=== PATIENT | female | born 1970 | race Caucasian/White ===

== ENCOUNTER → 2017-10-19 | Outpatient (CLI) | payer OTHER ==
[~2017-10-19] MED LIST: ABAC300; Acular3 ML BOTHEYES; Aspir 8181 MG PO; CIPR500 PO; CRUTCH3 USE; CYCL10 PO; Ciloxan5 ML BOTHEYES; GABA100 PO; GLUCOSAMINE CO1 EACH PO; Glucosamine Ch1 EAC4 PO; HYDACE5325 PO; HYDCHL25 PO; Hair, Skin & N1 EACH PO; Hydrochlorothia25 MG PO; IBUP600 PO; IBUP800 PO; Klor-Con 1010 MEQ PO; LISI5 PO; METR500 PO; Norco 5-325 Ta1 EACH PO; OXYACE5T PO; OXYC5 PO; POTASSIUM GLUCONATE PO; POTCHL10ER PO; PRED20 PO; PROM25 PO; Prinivil10 MG PO; RXOXYACE PO; RXPROM25 PO; WARF4 PO
[2017-10-19 14:19] LABS: Appearance, Urine Clear (Clear); Bilirubin, Urine Neg (Neg); Blood, Urine 1+ (Neg); Color, Urine Yellow (P-Yellow); Glucose Qualitative, Urine Neg (Neg); Ketones, Urine Neg (Neg); Leukocyte Esterase, Urine Neg (Neg); Nitrite, Urine Neg (Neg); Protein, Urine Neg (Neg); Urobilinogen, Urine NORM (Normal)
[2017-10-19 14:32] LABS: Bacteria Rare /hpf; Red Blood Cells, Urine Not Seen /hpf (0-2); Squamous Epithelial Cells Rare /hpf (Few); White Blood Cells, Urine Not Seen /hpf (0-5)
== END | disposition home or self-care (01) ==
LOC: LAB 13:53 → LAB SHORT 13:53
PROVIDERS: Orthopaedic Surgery
DX: M19.019 Primary osteoarthritis, unspecified shoulder (principal); I10 Essential (primary) hypertension
CPT/HCPCS: 81001

== ENCOUNTER 2017-10-25 13:25 | Inpatient (IN) | payer OTHER ==
[~2017-10-25] VITALS: Ht 182.9 cm; Wt 112.9 kg
[2017-10-31 04:39] LABS: BASOPHILS ABSOLUTE AUTO 0.01 K/mm3 (0.00-0.23); BASOPHILS PERCENT AUTO 0 % (0-2); EOSINOPHILS ABSOLUTE AUTO 0.03 K/mm3 (0.00-0.68); EOSINOPHILS PERCENT AUTO 0 % (0-6); Hematocrit 34.7 % (33.0-51.0); Hemoglobin 11.2 g/dL (11.5-16.0); IMMATURE GRAN ABSOLUTE AUTO 0.06 K/mm3 (0.00-0.10); IMMATURE GRAN PERCENT AUTO 0 % (0-1); LYMPHOCYTES ABSOLUTE AUTO 1.32 K/mm3 (0.84-5.20); LYMPHOCYTES PERCENT AUTO 9 % (21-46); MONOCYTES ABSOLUTE AUTO 1.13 K/mm3 (0.16-1.47); MONOCYTES PERCENT AUTO 8 % (4-13); Mean Corpuscular HGB 28.4 pg (26.0-34.0); Mean Corpuscular HGB Conc 32.3 g/dL (31.5-36.5); Mean Corpuscular Volume 88 fL (80-100); Mean Platelet Volume 9.4 fL (9.1-12.4); NEUTROPHILS PERCENT AUTO 82 % (41-73); Platelet Count 265 K/mm3 (150-400); RDW Standard Deviation 45.2 fL (35.1-46.3); Red Blood Cell Count 3.94 M/mm3 (3.80-5.20); White Blood Cell Count 14.45 K/mm3 (4.00-11.30)
[2017-10-31 04:56] LABS: Anion Gap 7 mmol/L (6-16); Blood Urea Nitrogen 21 mg/dL (8-24); Bun/Creatinine Ratio 23.7 (12.0-20.0); CO2, Blood 28 mmol/L (21-32); Calcium, Blood 7.8 mg/dL (8.5-10.1); Chloride, Blood 102 mmol/L (98-108); Creatinine, Blood 0.89 mg/dL (0.40-1.00); Glomerular Filtration Rate >60 (60-); Glucose, Blood 115 mg/dL (70-99); Potassium, Blood 4.3 mmol/L (3.5-5.5); Sodium, Blood 137 mmol/L (136-145)
[2017-10-31] MEDS ORDERED: OXYC5 PO (13:17)
[2017-10-31] MEDS ORDERED: ASPI325EC PO (13:19)
== END 2017-10-31 14:23 | disposition home or self-care (01) | DRG 483 ==
LOC: SURS 10-30 05:58 → PRE IP 10-30 07:30 → SURS 10-30 11:23
PROVIDERS: Orthopaedic Surgery
PROC: 0RRK0J6 Replacement of Left Shoulder Joint with Synthetic Substitute, Humeral Surface, Open Approach (ICD-10-PCS; principal; 2017-10-30 07:30)
DX: M19.012 Primary osteoarthritis, left shoulder (principal); I10 Essential (primary) hypertension
CPT/HCPCS: 36415; 73030; 80048; 85025; 86850; 86900; 86901; 97110; 97116; 97162; 97165; 97535; C1776; G8978; G8979; G8987; G8988; G8989; J0171; J0690; J0735; J1100; J1885; J2250; J2405; J2795; J3010; J7120

== ENCOUNTER 2018-05-07 09:58 | Inpatient (IN) | payer OTHER ==
[~2018-05-07] VITALS: Ht 182.9 cm; Wt 112.8 kg
[~2018-05-07 09:58] MED LIST changes: +ASPI325EC PO; +CHOL10002 PO
--- NOTE | 2018-05-07 10:40 | NUR ---
History, Chart, Medications and Allergies reviewed before start of procedure. Patient confirms NPO status and agrees with scheduled surgery. Lungs clear T/O to Auscultation. Pre-Op teaching done. Pt verbalizes understanding. Patient reports completing Chlorhexadine shower X2 prior to admission to hospital. NO MUPIROCIN PRESCRIBED FOR MSSA+
--- NOTE | 2018-05-07 11:04 | NUR ---
NOZIN SWABS COMPLETED AT IN PREOP.
--- NOTE | 2018-05-07 11:18 | NUR ---
LUIS Clemons RN WILL ASSIST DR NOLEN WITH BLOCK IN SDS SPOT #4.
--- NOTE | 2018-05-07 11:40 | NUR ---
MONITORS PLACED ON PATIENT FOR BLOCK, CONTINUOUS SaO2 AND B/P.
--- NOTE | 2018-05-07 11:54 | NUR ---
BAG PATCHER REPORT COMPLETED AT BEDSIDE WITH DANIELE AMAYA RN.
--- NOTE | 2018-05-07 14:10 | NUR ---
05/07/18 1410 Jinny Christensen ALL COUNTS CORRECT
--- NOTE | 2018-05-07 18:17 | NUR ---
PT ARRIVED AT APPROXIMATELY 1600 TO THE ROOM. PT ORIENTED BUT DROWSY. SPOUSE AT THE BEDSIDE. PT DENIED N/V AND PAIN. ABLE TO WIGGLE FINGERS, CAP REFIL WNL, RADIAL PULSE TO RUE WNL. WILL CONTINUE TO MONITOR.
--- NOTE | 2018-05-07 19:40 | NUR ---
SHIFT SUMMARY PAIN HAS BEEN MANAGED WITH PO PAIN MEDICATION POST OP. PT IS TOLERATING PO. ABLE TO MOVE HER FINGERS, RADIAL PULSE WNL, CAP REFILL WNL. REPORT GIVEN TO ONELIA OSBORNE.
--- NOTE | 2018-05-08 04:01 | NUR ---
47 year old Female with rt shoulder surgery up with minimal assist to ambulate to bathroom several times. on room air voida and pain controlled on tylenol 100 mg po scheduled, toradol q 6 hours and oxycodone 10 mg po q 4 hours prn. has taken oxycodone 10 mg several times and would like it again prior to this shifts end. minimal appetite, taking fluids well. 2 Daughters rooming in at bedside. PT refused ice to rt shoulder.
[2018-05-08 05:12] LABS: BASOPHILS ABSOLUTE AUTO 0.02 K/mm3 (0.00-0.23); BASOPHILS PERCENT AUTO 0 % (0-2); EOSINOPHILS ABSOLUTE AUTO 0.01 K/mm3 (0.00-0.68); EOSINOPHILS PERCENT AUTO 0 % (0-6); Hematocrit 36.9 % (33.0-51.0); Hemoglobin 11.5 g/dL (11.5-16.0); IMMATURE GRAN ABSOLUTE AUTO 0.06 K/mm3 (0.00-0.10); IMMATURE GRAN PERCENT AUTO 0 % (0-1); LYMPHOCYTES ABSOLUTE AUTO 1.12 K/mm3 (0.84-5.20); LYMPHOCYTES PERCENT AUTO 8 % (21-46); MONOCYTES ABSOLUTE AUTO 0.96 K/mm3 (0.16-1.47); MONOCYTES PERCENT AUTO 7 % (4-13); Mean Corpuscular HGB 25.3 pg (26.0-34.0); Mean Corpuscular HGB Conc 31.2 g/dL (31.5-36.5); Mean Corpuscular Volume 81 fL (80-100); Mean Platelet Volume 9.6 fL (9.1-12.4); NEUTROPHILS ABSOLUTE AUTO 11.89 K/mm3 (1.96-9.15); NEUTROPHILS PERCENT AUTO 85 % (41-73); Platelet Count 269 K/mm3 (150-400); RDW Standard Deviation 49.9 fL (35.1-46.3); Red Blood Cell Count 4.55 M/mm3 (3.80-5.20); White Blood Cell Count 14.06 K/mm3 (4.00-11.30)
[2018-05-08 05:51] LABS: Anion Gap 7 mmol/L (6-16); Blood Urea Nitrogen 22 mg/dL (8-24); Bun/Creatinine Ratio 23.1 (12.0-20.0); CO2, Blood 27 mmol/L (21-32); Calcium, Blood 8.2 mg/dL (8.5-10.1); Chloride, Blood 102 mmol/L (98-108); Creatinine, Blood 0.95 mg/dL (0.40-1.00); Glomerular Filtration Rate >60 (60-); Glucose, Blood 127 mg/dL (70-99); Magnesium, Blood 2.2 mg/dL (1.6-2.4); Potassium, Blood 4.4 mmol/L (3.5-5.5); Sodium, Blood 136 mmol/L (136-145)
--- NOTE | 2018-05-08 09:05 | NUR ---
PT DOES NOT HAVE A KENNEY IN PLACE. VOIDING WELL.
[2018-05-08] MEDS ORDERED: OXYC5 PO (16:02)
[2018-05-08] MEDS ORDERED: ASPI325 PO (16:03)
--- NOTE | 2018-05-08 16:15 | NUR ---
DISCHARGE PT HAS DONE WELL TODAY. PAIN WELL MANAGED, SCRIPT GIVEN, TOLERATING DIET, VOIDING WELL. PT FEELS COMFORTABLE WITH D/C. ESCORTED OUT VIA W/C.
== END 2018-05-08 16:16 | disposition home or self-care (01) | DRG 483 ==
LOC: SURS 09:58 → PRE IP 11:45 → SURS 15:57
PROVIDERS: ADMIT Orthopaedic Surgery
PROC: 0RRJ0J6 Replacement of Right Shoulder Joint with Synthetic Substitute, Humeral Surface, Open Approach (ICD-10-PCS; principal; 2018-05-07 11:45)
DX: M19.011 Primary osteoarthritis, right shoulder (principal); I10 Essential (primary) hypertension; E66.9 Obesity, unspecified; Z68.33 Body mass index [BMI] 33.0-33.9, adult
CPT/HCPCS: 36415; 73030; 80048; 83735; 85025; 88300; 97110; 97162; 97165; 97530; 97535; C1776; J0171; J0690; J0735; J1100; J1885; J2250; J2370; J2405; J2710; J2795; J3010; J7120

== ENCOUNTER 2019-10-20 20:09 | Inpatient (IN) | payer BC, OTHER ==
[~2019-10-20] VITALS: Ht 182.9 cm; Wt 123.8 kg
[~2019-10-20 20:09] MED LIST changes: +ASPI325 PO
[2019-10-20 20:46] LABS: BASOPHILS ABSOLUTE AUTO 0.06 K/mm3 (0.00-0.23); BASOPHILS PERCENT AUTO 0 % (0-2); EOSINOPHILS ABSOLUTE AUTO 0.07 K/mm3 (0.00-0.68); EOSINOPHILS PERCENT AUTO 1 % (0-6); Hematocrit 41.7 % (33.0-51.0); Hemoglobin 12.8 g/dL (11.5-16.0); IMMATURE GRAN ABSOLUTE AUTO 0.08 K/mm3 (0.00-0.10); IMMATURE GRAN PERCENT AUTO 1 % (0-1); LYMPHOCYTES ABSOLUTE AUTO 1.18 K/mm3 (0.84-5.20); LYMPHOCYTES PERCENT AUTO 8 % (21-46); MONOCYTES ABSOLUTE AUTO 1.34 K/mm3 (0.16-1.47); MONOCYTES PERCENT AUTO 9 % (4-13); Mean Corpuscular HGB 24.3 pg (26.0-34.0); Mean Corpuscular HGB Conc 30.7 g/dL (31.5-36.5); Mean Corpuscular Volume 79 fL (80-100); Mean Platelet Volume 9.4 fL (9.1-12.4); NEUTROPHILS ABSOLUTE AUTO 12.55 K/mm3 (1.96-9.15); NEUTROPHILS PERCENT AUTO 82 % (41-73); Platelet Count 294 K/mm3 (150-400); RDW Coefficient Variation 17.2 % (11.7-14.2); RDW Standard Deviation 48.6 fL (35.1-46.3); Red Blood Cell Count 5.27 M/mm3 (3.80-5.20); White Blood Cell Count 15.28 K/mm3 (4.00-11.30)
[2019-10-20 21:04] LABS: Anion Gap 5 mmol/L (6-16); Blood Urea Nitrogen 7 mg/dL (8-24); Bun/Creatinine Ratio 9.7 (12.0-20.0); CO2, Blood 25 mmol/L (21-32); Calcium, Blood 8.6 mg/dL (8.5-10.1); Chloride, Blood 104 mmol/L (98-108); Creatinine, Blood 0.72 mg/dL (0.40-1.00); Glomerular Filtration Rate >60 (60-); Glucose, Blood 109 mg/dL (70-99); Sodium, Blood 134 mmol/L (136-145)
[2019-10-20] MEDS ORDERED: FUROSEMIDE20 MG PO ×2 (21:30)
[2019-10-20 23:16] LABS: Body Fluid Crystals NEG (NEGATIVE)
[2019-10-21 01:48] LABS: Appearance, Synovial Fluid Cloudy (Clear); Color, Synovial Fluid Yellow (None-P Yel); WBC Count, Synovial Fluid 61120 /mm3 (0-180)
[2019-10-21 01:49] LABS: BODY FLUID RBC 0.006 M/mm3 (0-0); RBC Count, Synovial Fluid 6000 /mm3 (0-0)
[2019-10-21 01:55] LABS: Lymphs, Synovial Fluid 1 % (0-15); Monocytes/Macrophages, Synovia 10 % (0-65); Neutrophils, Synovial Fluid 89 % (0-24)
--- NOTE | 2019-10-21 04:59 | NUR ---
SHIFT SUMMARY RECIEVED REPORT FROM LYNN OSBORNE, ED @ 0242. ARRIVED TO MEDICAL FLOOR VIA STRETCHER @ 0302. STATED DIFFICULT TX FROM STRETCHER TO BED. WANTS TO ATTEMPT TO USE BSC BEFORE BEDPAN. A/O, ABLE TO MAKE NEEDS KNOWN. COOPERATIVE WITH CARE. ANSWERS QUESTIONS APPROPRIATELY. C/O PAIN/DISCOMFORT TO L KNEE RATED 6/10; MEDICATED PER EMAR. IV FLUIDS/ABX INFUSING WITHOUT COMPLICATIONS. ORTHO CONSULT TO BE PLACED. REMAINS NPO FOR POSSIBLE PROCEDURE. VSS. WCTM. BED REMAINS IN LOWEST POSITION. CALL LIGHT AND BELONGINGS WITHIN REACH. REPORT TO ONCOMING RN.
[2019-10-21 05:10] LABS: BASOPHILS ABSOLUTE AUTO 0.06 K/mm3 (0.00-0.23); BASOPHILS PERCENT AUTO 1 % (0-2); EOSINOPHILS ABSOLUTE AUTO 0.09 K/mm3 (0.00-0.68); EOSINOPHILS PERCENT AUTO 1 % (0-6); Hemoglobin 11.4 g/dL (11.5-16.0); IMMATURE GRAN ABSOLUTE AUTO 0.07 K/mm3 (0.00-0.10); IMMATURE GRAN PERCENT AUTO 1 % (0-1); LYMPHOCYTES ABSOLUTE AUTO 1.22 K/mm3 (0.84-5.20); LYMPHOCYTES PERCENT AUTO 11 % (21-46); MONOCYTES ABSOLUTE AUTO 1.33 K/mm3 (0.16-1.47); MONOCYTES PERCENT AUTO 12 % (4-13); Mean Corpuscular HGB 24.6 pg (26.0-34.0); Mean Corpuscular HGB Conc 30.8 g/dL (31.5-36.5); Mean Corpuscular Volume 80 fL (80-100); Mean Platelet Volume 9.5 fL (9.1-12.4); NEUTROPHILS ABSOLUTE AUTO 8.63 K/mm3 (1.96-9.15); NEUTROPHILS PERCENT AUTO 76 % (41-73); Platelet Count 216 K/mm3 (150-400); RDW Coefficient Variation 17.2 % (11.7-14.2); RDW Standard Deviation 49.5 fL (35.1-46.3); Red Blood Cell Count 4.63 M/mm3 (3.80-5.20)
[2019-10-21 05:48] LABS: Anion Gap 5 mmol/L (6-16); Blood Urea Nitrogen 8 mg/dL (8-24); Bun/Creatinine Ratio 9.4 (12.0-20.0); CO2, Blood 27 mmol/L (21-32); Calcium, Blood 7.9 mg/dL (8.5-10.1); Chloride, Blood 105 mmol/L (98-108); Creatinine, Blood 0.85 mg/dL (0.40-1.00); Glomerular Filtration Rate >60 (60-); Glucose, Blood 95 mg/dL (70-99); Potassium, Blood 3.4 mmol/L (3.5-5.5); Sodium, Blood 137 mmol/L (136-145)
--- NOTE | 2019-10-21 17:15 | NUR ---
SHIFT SUMMARY: PT HAS SLEPT MOST OF THE SHIFT. HAD SEVERE PAIN TO HER LEFT KNEE WHEN TRANSFERRING TO [facility] WITH ASSISTANCE FROM RN AND PROGRAM AND RESEARCH COORDINATOR. 0.5 MG IV DILAUDID GIVEN PRN PER EMAR, AND PT REPORTS THIS IS EFFECTIVE IN TREATING HER PAIN. NS RUNNING AT 100 ML/HR. DR. RENE IN TO SEE PT THIS MORNING; STATES PT WILL NEED TO BE NPO AT MIDNIGHT FOR POSSIBLE PROCEDURE TOMORROW. PT UPDATED ON THIS PLAN. TEMP 99.9 THIS AFTERNOON, IV ABX ORDERED. NO OTHER CHANGES TO REPORT. CURRENTLY SLEEPING WITH CALL LIGHT IN REACH. WILL CONTINUE TO MONITOR AND REPORT TO ONCOMING RN.
[2019-10-22 03:11] LABS: BASOPHILS ABSOLUTE AUTO 0.03 K/mm3 (0.00-0.23); BASOPHILS PERCENT AUTO 0 % (0-2); EOSINOPHILS ABSOLUTE AUTO 0.07 K/mm3 (0.00-0.68); EOSINOPHILS PERCENT AUTO 1 % (0-6); Hematocrit 36.1 % (33.0-51.0); IMMATURE GRAN ABSOLUTE AUTO 0.05 K/mm3 (0.00-0.10); IMMATURE GRAN PERCENT AUTO 0 % (0-1); LYMPHOCYTES ABSOLUTE AUTO 1.07 K/mm3 (0.84-5.20); LYMPHOCYTES PERCENT AUTO 9 % (21-46); MONOCYTES ABSOLUTE AUTO 1.54 K/mm3 (0.16-1.47); MONOCYTES PERCENT AUTO 13 % (4-13); Mean Corpuscular HGB 24.2 pg (26.0-34.0); Mean Corpuscular HGB Conc 30.5 g/dL (31.5-36.5); Mean Corpuscular Volume 79 fL (80-100); Mean Platelet Volume 9.1 fL (9.1-12.4); NEUTROPHILS ABSOLUTE AUTO 9.44 K/mm3 (1.96-9.15); NEUTROPHILS PERCENT AUTO 77 % (41-73); Platelet Count 234 K/mm3 (150-400); RDW Coefficient Variation 17.2 % (11.7-14.2); Red Blood Cell Count 4.55 M/mm3 (3.80-5.20)
[2019-10-22 03:27] LABS: Vancomycin, Trough 16.7 ug/mL (5.0-10.0)
--- NOTE | 2019-10-22 04:24 | NUR ---
SHIFT SUMMARY ASSUMED CARE OF PT AT 1900. PT IS A/OX4, DENIES N/T IN EXTREMITES. HEART SOUNDS REGULAR, LUNG SOUNDS CLEAR, DENIES SOB/CP. PT WAS CONTINENT OF BLADDER. PT USED BED LANG LAST NIGHT DUE TO DIFFICULTY GETTING UP. PT WAS VERY EMBARRASSED AND CRIED DURING AFTER BEING CLEANED. PT L KNEE IS SWOLLEN AND FIRM TO TOUCH. PT C/O PAIN, MEDICATED PER EMAR. PT HAS BEEN NPO SINCE MIDNIGHT. CALL LIGHT IN REACH, BED IN LOWEST POSTION, WILL CONTINUE TO MONITOR UNTIL DAYSHIFT NURSE ARRIVES.
--- NOTE | 2019-10-22 12:21 | NUR ---
PATIENT OFF UNIT TO OR AT 1145. FOLLOWED.
--- NOTE | 2019-10-22 13:09 | NUR ---
"DAY SURGERY RN | TO OR BOTH DOCTORS HAVE SEEN PATIENT. CLOTHING ROOM SUPERVISOR RN, LUIS OSBORNE, HAVE SEEN PATIENT. REPORT OFF TO LUIS OSBORNE. TO OR."
--- NOTE | 2019-10-22 14:19 | NUR ---
PATIENT BELONGINGS DELIVERED TO ROOM 231 BY Garcia CONTRERAS CNA. REPORT GIVEN TO Fermin YOON RN AT 1405.
--- NOTE | 2019-10-22 16:20 | NUR ---
PT ARRIVED TO ROOM 231 FROM PACU S/P L KNEE I&D PT HAS A HEMOVAC DRAINING SERO/SANG DRAINAGE PT DROWSY REPORTS PAIN 5/10 TO THE KNEE ANTONIO WRAP BULKY DRESSING C/D/I PT S/O AT BEDSIDE
--- NOTE | 2019-10-22 19:07 | NUR ---
CARE ASSUMED AT 1730 CARE OF PT WAS ASSUMED AT 1730. PT DROWSY BUT AWAKENS WHEN SPOKEN TO. REPORT GIVEN TO JUDAH OSBORNE.
[2019-10-23 04:39] LABS: BASOPHILS ABSOLUTE AUTO 0.03 K/mm3 (0.00-0.23); BASOPHILS PERCENT AUTO 0 % (0-2); EOSINOPHILS ABSOLUTE AUTO 0.01 K/mm3 (0.00-0.68); EOSINOPHILS PERCENT AUTO 0 % (0-6); Hematocrit 35.5 % (33.0-51.0); Hemoglobin 10.9 g/dL (11.5-16.0); IMMATURE GRAN ABSOLUTE AUTO 0.06 K/mm3 (0.00-0.10); IMMATURE GRAN PERCENT AUTO 0 % (0-1); LYMPHOCYTES ABSOLUTE AUTO 0.76 K/mm3 (0.84-5.20); LYMPHOCYTES PERCENT AUTO 5 % (21-46); MONOCYTES ABSOLUTE AUTO 1.46 K/mm3 (0.16-1.47); MONOCYTES PERCENT AUTO 10 % (4-13); Mean Corpuscular HGB 24.8 pg (26.0-34.0); Mean Corpuscular HGB Conc 30.7 g/dL (31.5-36.5); Mean Corpuscular Volume 81 fL (80-100); Mean Platelet Volume 9.5 fL (9.1-12.4); NEUTROPHILS ABSOLUTE AUTO 12.14 K/mm3 (1.96-9.15); NEUTROPHILS PERCENT AUTO 84 % (41-73); Platelet Count 259 K/mm3 (150-400); RDW Coefficient Variation 17.1 % (11.7-14.2); RDW Standard Deviation 49.6 fL (35.1-46.3); White Blood Cell Count 14.46 K/mm3 (4.00-11.30)
[2019-10-23 05:01] LABS: Alanine Aminotransfer (ALT/SGP 32 U/L (12-78); Albumin, Blood 2.2 g/dL (3.4-5.0); Albumin/Globulin Ratio 0.5 (0.8-1.8); Alk Phos 195 U/L (50-136); Anion Gap 3 mmol/L (6-16); Aspartate Aminotrans (AST/SGOT 27 U/L (12-37); Bilirubin, Total 0.5 mg/dL (0.1-1.0); Blood Urea Nitrogen 13 mg/dL (8-24); CO2, Blood 27 mmol/L (21-32); Calcium, Blood 8.4 mg/dL (8.5-10.1); Chloride, Blood 110 mmol/L (98-108); Creatinine, Blood 0.81 mg/dL (0.40-1.00); Globulin, Blood 4.4 g/dL (2.2-4.0); Glomerular Filtration Rate >60 (60-); Glucose, Blood 116 mg/dL (70-99); Potassium, Blood 4.2 mmol/L (3.5-5.5); Sodium, Blood 140 mmol/L (136-145); Total Protein, Blood 6.6 g/dL (6.4-8.2)
--- NOTE | 2019-10-23 05:12 | NUR ---
SHIFT SUMMARY: YVES AROUSES EASILY AND RESPONDS APPROPRIATELY. SHE IS POD1 TODAY FOR A LEFT KNEE. SHE HAS RESTED FOR THE MAJORITY OF THE SHIFT. VSS, NO ACUTE CHANGES OVERNIGHT. SHE IS TOLERATING PO INTAKE WELL. SIDE RAILS UP X 3, CALL LIGHT IN REACH. WILL REPORT TO DAY SHIFT RN.
--- NOTE | 2019-10-23 12:22 | NUR ---
10/23/19 1222 Judith Guerrero VERIIFICATIONS: EDIT CHART.
--- NOTE | 2019-10-23 16:48 | NUR ---
Shift summary Patient is a 1 person assist to the BSC. Pain controlled with scheduled Tylenol and Toradol. Oxycodone given for breakthrough pain. VSS. Dressing CDI. Hemovac putting out serosanguinous fluid. Call light within patient reach.
--- NOTE | 2019-10-24 01:28 | NUR ---
10/23/19 194 PT LAYING IN BED WITH HEMOVAC DRAINING SMALL AMOUNT DARK RED FLUID; PT C/O LEFT KNEE PAIN RATED 7/10 WITH SCHEDULED TORADOL AND TYLENOL 1000MG GIVEN WITH RELIEF FELT. 10/24/1999 PT RESTING COMFORTABLY IN BED.
--- NOTE | 2019-10-24 03:56 | NUR ---
SHIFT SUMMARY: 48 Y/O FEMALE HAD RESTLESS NIGHT AT TIMES WITH LEFT KNEE PAIN RATED 8/10 WITH ROXICODONE 10MG PO GIVEN TWICE WITH ADEQUATE PAIN RELIEF VOICED; PTS LLE ANTONIO WRAP DRESSING DRY AND INTACT WITH HEMOVAC DRAINING SMALL AMOUNT DARK RED FLUID; ALERT AND ORIENTED X 4; PT ABLE TO STAND AND PIVOT AND VOID VIA BSC; BED LOW POSITION WITH CALL LIGHT AT SIDE; WEARING SCDS ALL SHIFT WITH TEDS.
--- NOTE | 2019-10-24 17:44 | NUR ---
Shift summary Patient is a SBA in the room. Pain controlled with scheduled Tylenol and Oxycodone for breakthrough pain. VSS. Hemovac removed today. ANTONIO wrap CDI. PICC line placed to RUE. Plan for patient to go home tomorrow with home health for antibiotic therapy. Call light within patient reach.
--- NOTE | 2019-10-25 07:30 | NUR ---
ASSUMED CARE: PT RESTING QUIETLY IN BED AT THIS TIME. NO ACUTE NEEDS OR CONCERNS NOTED.
--- NOTE | 2019-10-25 07:40 | NUR ---
SUMMARY PT SLEPT QUIETLY. REPORTED PO PAIN MEDS EFFECTIVE.OOB FOR BRP TONIGHT WITH SBA.
--- NOTE | 2019-10-25 09:50 | NUR ---
CALL TO PHARMACY REGARDING ANTIBIOTIC SENSITIVITIES. AWAITING RETURN CALL
--- NOTE | 2019-10-25 11:34 | NUR ---
DR COMBS AWARE OF PHARMACY'S RECOMMENDATIONS FOR ABX. DOES NOT WISH TO CHANGE AT THIS TIME DUE TO CURRENT ORDERS BEING DR CONTRERAS'S RECOMMENDATIONS. AWAITING WORD FROM DC PLANNING ON STATUS OF OUTPT ABX.
--- NOTE | 2019-10-25 17:56 | NUR ---
SHIFT SUMMARY: PT FOR DC SUNDAY WHEN ABX BECOME AVAILABLE FOR HOME INFUSIONS. PT MEDICATED X1 PRN AND PER SCHEDULE. WORKED WITH PHYSICAL THERAPY AND AMBULATED INTO RESTROOM AND TOOK SHOWER. DENIES FURTHER NEEDS OR CONCERNS AT THIS TIME.
--- NOTE | 2019-10-26 07:42 | NUR ---
ASSUMED CARE: PT RESTING QUIETLY AT THIS TIME. NO ACUTE NEEDS OR CONCERNS NOTED.
--- NOTE | 2019-10-26 08:09 | NUR ---
SUMMARY PT VERB SLEPT WELL TONIGHT.
--- NOTE | 2019-10-26 13:42 | NUR ---
PT C/O FEELING WRESTLESS. ENCOURAGED ACTIVITY AND OFFERED TO HELP HER PRACTICE STAIRS WITH A STEPPING STOOL. STATES SHE MAY TRY AFTER HER DAUGHTER COMES AND GOES
--- NOTE | 2019-10-26 16:09 | NUR ---
REPORT GIVEN TO INDIA ANDERSON. AWARE THAT PT NEEDS BM AND IS AWAITING IV INFUSION TO BE SET UP AT HOME. DISCUSSED WITH JUSTIN THAT PT DECLINED PRACTICING STEPS OR AMBULATING AT THIS TIME. PT REQUESTED TYLENOL CLOSER TO 1700, NO OTHER NEEDS OR CONCERNS.
--- NOTE | 2019-10-26 16:19 | NUR ---
ASSUMED CARE OF PATIENT AT THIS TIME.
--- NOTE | 2019-10-26 18:39 | NUR ---
PT HAS BEEN STABLE THIS SHIFT. PAIN CONTROLLED WITH PRN AND SCHEDULED MEDS. PT ABLE TO GET UP WITH MIN ASSIST OOB TO MOBILIZE. PT HAD LARGE AMT LOOSE BM THIS AFTERNOON AFTER BOWEL CARE GIVEN T/O SHIFT. LIBIA REG DIET WELL. MEDIPORE DRESSING PLACED TO LEFT KNEE, CDI. CONT ABX ORDERED. PLAN FOR HOME INFUSIONS ONCE DISCHARGED. PICC IN PLACE. AM LABS ORDERED. PT USES CALL LIGHT APPROPRIATELY NEEDED.
[2019-10-27 05:44] LABS: BASOPHILS ABSOLUTE AUTO 0.06 K/mm3 (0.00-0.23); BASOPHILS PERCENT AUTO 1 % (0-2); EOSINOPHILS ABSOLUTE AUTO 0.47 K/mm3 (0.00-0.68); EOSINOPHILS PERCENT AUTO 5 % (0-6); Hematocrit 37.3 % (33.0-51.0); Hemoglobin 11.4 g/dL (11.5-16.0); IMMATURE GRAN ABSOLUTE AUTO 0.06 K/mm3 (0.00-0.10); IMMATURE GRAN PERCENT AUTO 1 % (0-1); LYMPHOCYTES ABSOLUTE AUTO 1.66 K/mm3 (0.84-5.20); LYMPHOCYTES PERCENT AUTO 17 % (21-46); MONOCYTES ABSOLUTE AUTO 0.79 K/mm3 (0.16-1.47); MONOCYTES PERCENT AUTO 8 % (4-13); Mean Corpuscular HGB 24.3 pg (26.0-34.0); Mean Corpuscular HGB Conc 30.6 g/dL (31.5-36.5); Mean Corpuscular Volume 80 fL (80-100); Mean Platelet Volume 9.2 fL (9.1-12.4); NEUTROPHILS PERCENT AUTO 68 % (41-73); Platelet Count 376 K/mm3 (150-400); RDW Coefficient Variation 17.2 % (11.7-14.2); RDW Standard Deviation 49.6 fL (35.1-46.3); Red Blood Cell Count 4.69 M/mm3 (3.80-5.20); White Blood Cell Count 9.54 K/mm3 (4.00-11.30)
[2019-10-27 06:15] LABS: Alanine Aminotransfer (ALT/SGP 82 U/L (12-78); Albumin, Blood 2.6 g/dL (3.4-5.0); Albumin/Globulin Ratio 0.6 (0.8-1.8); Alk Phos 176 U/L (50-136); Anion Gap 6 mmol/L (6-16); Aspartate Aminotrans (AST/SGOT 102 U/L (12-37); Bilirubin, Total 0.4 mg/dL (0.1-1.0); Blood Urea Nitrogen 7 mg/dL (8-24); Bun/Creatinine Ratio 9.6 (12.0-20.0); CO2, Blood 30 mmol/L (21-32); Calcium, Blood 9.2 mg/dL (8.5-10.1); Chloride, Blood 103 mmol/L (98-108); Creatinine, Blood 0.73 mg/dL (0.40-1.00); Globulin, Blood 4.4 g/dL (2.2-4.0); Glomerular Filtration Rate >60 (60-); Glucose, Blood 87 mg/dL (70-99); Potassium, Blood 3.9 mmol/L (3.5-5.5); Sodium, Blood 139 mmol/L (136-145)
--- NOTE | 2019-10-27 06:17 | NUR ---
SHIFT SUMMARY L KNEE I&D [id number]. PT IND IN ROOM, USING FWW TO BATHROOM. PT MEDICATED FOR PAIN PER EMAR. INCREASE IN PAIN WHEN AMBULATING. MEDIPORE ON LEFT KNEE CDI. PICC LINE IN PLACE, SALINE LOCKED. PT TOLERATING PO WELL. PLAN IS TO DISCHARGE AND RECEIVE TREATMENT OUTPATIENT. PT STATES SHE IS LEAVING TODAY AND IS READY TO GO.
[2019-10-27] MEDS ORDERED: CEFTRIAXONE2 G1 IV ×2 (09:35)
[2019-10-27] MEDS ORDERED: ROXICODONE5 MG PO ×2 (09:36)
[2019-10-27] MEDS ORDERED: RIFA300 PO ×2 (09:36)
[2019-10-27] MEDS ORDERED: SENN187 PO ×2 (09:37)
--- NOTE | 2019-10-27 09:56 | NUR ---
DISCHARGE PT EDUCATED ON AND RECEIVED PRINTED DISCHARGE INSTRUCTIONS AND VERBALIZED AN UNDERSTANDING. HARD RX FOR OXICODONE GIVEN TO PT. OTHER NEW RX FAXED OVER TO [facility] PER PT REQUEST. [facility] APPOINTMENT SCHEDULED FOR TOMORROW AT [address] AM. P[address] LINE IN PLACE. PT GATHERED PERSONAL BELONGINGS AND WAITING FOR TO COME PICK HER UP.
== END 2019-10-27 10:24 | disposition home or self-care (01) | DRG 485 ==
LOC: ER 20:09 → MEDS 10-21 01:23 → SURS 10-21 01:23 → ERHOLD 10-21 01:23 → MEDS 10-21 03:02 → SURS 10-22 13:21
PROVIDERS: Emergency Medicine; Internal Medicine; Orthopaedic Surgery; Physician Assistant; ADMIT Internal Medicine
PROC: 3E0U029 Introduction of Other Anti-infective into Joints, Open Approach (ICD-10-PCS; 2019-10-22)
PROC: 0SPD09Z Removal of Liner from Left Knee Joint, Open Approach (ICD-10-PCS; principal; 2019-10-22 12:30)
PROC: 0SUW09Z Supplement Left Knee Joint, Tibial Surface with Liner, Open Approach (ICD-10-PCS; 2019-10-22 12:30)
DX: T84.54XA Infection and inflammatory reaction due to internal left knee prosthesis, initial encounter (principal); A41.01 Sepsis due to Methicillin susceptible Staphylococcus aureus; E87.1 Hypo-osmolality and hyponatremia; I42.2 Other hypertrophic cardiomyopathy; Z11.59 Encounter for screening for other viral diseases; I10 Essential (primary) hypertension; I34.0 Nonrheumatic mitral (valve) insufficiency; Z87.891 Personal history of nicotine dependence; Z96.611 Presence of right artificial shoulder joint; Z96.612 Presence of left artificial shoulder joint; Z96.653 Presence of artificial knee joint, bilateral
CPT/HCPCS: 36415; 73562-LT; 80048; 80053; 80202; 83605; 84703; 85025; 85651; 86140; 86141; 86850; 86900; 86901; 87040; 87070; 87071; 87075; 87077; 87147; 87186; 87205; 89051; 89060; 94762; 96374; 96375; 97110; 97116; 97162; 97530; 99284-25; A9270-GY; C1713; C1776; J0171; J0692; J0696; J0735; J1100; J1170; J1885; J2250; J2370; J2405; J2704; J2795; J3010; J3370; J7030; J7050; J7120; U0002

== ENCOUNTER 2019-10-28 00:12 | Day surgery (SDC) | payer BC, OTHER ==
[~2019-10-28 00:12] MED LIST changes: +CEFTRIAXONE2 G1 IV; +FUROSEMIDE20 MG PO; +RIFA300 PO; +ROXICODONE5 MG PO; +SENN187 PO
== END 2019-10-28 09:40 | disposition home or self-care (01) ==
LOC: ATC 00:12
DX: A41.9 Sepsis, unspecified organism (principal); T84.54XA Infection and inflammatory reaction due to internal left knee prosthesis, initial encounter; M00.9 Pyogenic arthritis, unspecified; I10 Essential (primary) hypertension; E87.1 Hypo-osmolality and hyponatremia; Z88.5 Allergy status to narcotic agent; Z88.8 Allergy status to other drugs, medicaments and biological substances; Z91.041 Radiographic dye allergy status; Z79.82 Long term (current) use of aspirin; Z79.899 Other long term (current) drug therapy; Z87.891 Personal history of nicotine dependence
CPT/HCPCS: 96365; J0696

== ENCOUNTER 2019-10-30 00:11 | Day surgery (SDC) | payer BC, OTHER | END 2019-10-30 11:02 | disposition home or self-care (01) | LOC: ATC 00:11 | DX: A41.9 Sepsis, unspecified organism (principal); M00.9 Pyogenic arthritis, unspecified; I10 Essential (primary) hypertension; E87.1 Hypo-osmolality and hyponatremia; Z88.5 Allergy status to narcotic agent; Z88.8 Allergy status to other drugs, medicaments and biological substances; Z91.041 Radiographic dye allergy status; Z87.891 Personal history of nicotine dependence; Z79.82 Long term (current) use of aspirin; Z79.899 Other long term (current) drug therapy | CPT/HCPCS: 96365; J0696 ==

== ENCOUNTER 2019-10-31 00:31 | Day surgery (SDC) | payer BC, OTHER | END 2019-10-31 11:25 | disposition home or self-care (01) | LOC: ATC 00:31 | DX: A41.9 Sepsis, unspecified organism (principal); M00.9 Pyogenic arthritis, unspecified; E87.1 Hypo-osmolality and hyponatremia; I10 Essential (primary) hypertension; Z88.5 Allergy status to narcotic agent; Z88.8 Allergy status to other drugs, medicaments and biological substances; Z91.041 Radiographic dye allergy status; Z79.82 Long term (current) use of aspirin; Z79.899 Other long term (current) drug therapy; Z87.891 Personal history of nicotine dependence | CPT/HCPCS: 96365; J0696 ==

== ENCOUNTER 2019-11-01 00:20 | Day surgery (SDC) | payer BC, OTHER | END 2019-11-01 11:11 | disposition home or self-care (01) | LOC: ATC 00:20 | DX: A41.9 Sepsis, unspecified organism (principal); M00.9 Pyogenic arthritis, unspecified; E87.1 Hypo-osmolality and hyponatremia; I10 Essential (primary) hypertension; Z88.5 Allergy status to narcotic agent; Z88.8 Allergy status to other drugs, medicaments and biological substances; Z91.041 Radiographic dye allergy status; Z79.82 Long term (current) use of aspirin; Z79.899 Other long term (current) drug therapy; Z87.891 Personal history of nicotine dependence | CPT/HCPCS: 96365; J0696 ==

== ENCOUNTER 2019-11-02 00:02 | Day surgery (SDC) | payer BC, OTHER | END 2019-11-02 10:59 | disposition home or self-care (01) | LOC: ATC 00:02 | DX: A41.9 Sepsis, unspecified organism (principal); M00.9 Pyogenic arthritis, unspecified; I10 Essential (primary) hypertension; E87.1 Hypo-osmolality and hyponatremia; Z87.891 Personal history of nicotine dependence; Z88.5 Allergy status to narcotic agent; Z88.8 Allergy status to other drugs, medicaments and biological substances; Z91.041 Radiographic dye allergy status; Z79.82 Long term (current) use of aspirin; Z79.899 Other long term (current) drug therapy | CPT/HCPCS: 96365; J0696 ==

== ENCOUNTER 2019-11-03 00:14 | Day surgery (SDC) | payer BC, OTHER | END 2019-11-03 11:11 | disposition home or self-care (01) | LOC: ATC 00:14 | DX: A41.9 Sepsis, unspecified organism (principal); I10 Essential (primary) hypertension; M00.9 Pyogenic arthritis, unspecified; E87.1 Hypo-osmolality and hyponatremia; Z88.5 Allergy status to narcotic agent; Z88.8 Allergy status to other drugs, medicaments and biological substances; Z91.041 Radiographic dye allergy status; Z87.891 Personal history of nicotine dependence; Z79.82 Long term (current) use of aspirin; Z79.899 Other long term (current) drug therapy | CPT/HCPCS: 96365; J0696 ==

== ENCOUNTER 2019-11-04 00:32 | Day surgery (SDC) | payer BC, OTHER | END 2019-11-04 11:12 | disposition home or self-care (01) | LOC: ATC 00:32 | DX: A41.9 Sepsis, unspecified organism (principal); M00.9 Pyogenic arthritis, unspecified; E87.1 Hypo-osmolality and hyponatremia; I10 Essential (primary) hypertension; Z88.5 Allergy status to narcotic agent; Z88.8 Allergy status to other drugs, medicaments and biological substances; Z91.041 Radiographic dye allergy status; Z79.82 Long term (current) use of aspirin; Z79.899 Other long term (current) drug therapy; Z87.891 Personal history of nicotine dependence | CPT/HCPCS: 96365; J0696 ==

== ENCOUNTER 2019-11-05 00:17 | Day surgery (SDC) | payer BC, OTHER | END 2019-11-05 11:04 | disposition home or self-care (01) | LOC: ATC 00:17 | DX: A41.9 Sepsis, unspecified organism (principal); I10 Essential (primary) hypertension; M00.9 Pyogenic arthritis, unspecified; Z88.5 Allergy status to narcotic agent; Z88.8 Allergy status to other drugs, medicaments and biological substances; Z91.041 Radiographic dye allergy status; E87.1 Hypo-osmolality and hyponatremia; Z79.82 Long term (current) use of aspirin; Z87.891 Personal history of nicotine dependence | CPT/HCPCS: 96365; J0696 ==

== ENCOUNTER 2019-11-06 00:06 | Day surgery (SDC) | payer BC, OTHER | END 2019-11-06 11:02 | disposition home or self-care (01) | LOC: ATC 00:06 | DX: A41.9 Sepsis, unspecified organism (principal); M00.9 Pyogenic arthritis, unspecified; E87.1 Hypo-osmolality and hyponatremia; I10 Essential (primary) hypertension; Z88.5 Allergy status to narcotic agent; Z88.8 Allergy status to other drugs, medicaments and biological substances; Z91.041 Radiographic dye allergy status; Z79.82 Long term (current) use of aspirin; Z79.899 Other long term (current) drug therapy; Z87.891 Personal history of nicotine dependence | CPT/HCPCS: 96365; J0696 ==

== ENCOUNTER 2019-11-10 00:06 | Day surgery (SDC) | payer BC, OTHER | END 2019-11-10 11:09 | disposition home or self-care (01) | LOC: ATC 00:06 | DX: A41.9 Sepsis, unspecified organism (principal); M00.9 Pyogenic arthritis, unspecified; E87.1 Hypo-osmolality and hyponatremia; I10 Essential (primary) hypertension; Z88.5 Allergy status to narcotic agent; Z88.8 Allergy status to other drugs, medicaments and biological substances; Z91.041 Radiographic dye allergy status; Z79.82 Long term (current) use of aspirin; Z79.899 Other long term (current) drug therapy; Z87.891 Personal history of nicotine dependence | CPT/HCPCS: 96365; J0696 ==

== ENCOUNTER 2019-11-11 00:06 | Day surgery (SDC) | payer BC, OTHER | END 2019-11-11 11:01 | disposition home or self-care (01) | LOC: ATC 00:06 | DX: A41.9 Sepsis, unspecified organism (principal); M00.9 Pyogenic arthritis, unspecified; E87.1 Hypo-osmolality and hyponatremia; I10 Essential (primary) hypertension; Z88.5 Allergy status to narcotic agent; Z88.8 Allergy status to other drugs, medicaments and biological substances; Z91.041 Radiographic dye allergy status; Z79.82 Long term (current) use of aspirin; Z79.899 Other long term (current) drug therapy; Z87.891 Personal history of nicotine dependence | CPT/HCPCS: 96365; J0696 ==

== ENCOUNTER 2019-11-15 00:09 | Day surgery (SDC) | payer BC, OTHER | END 2019-11-15 11:12 | disposition home or self-care (01) | LOC: ATC 00:09 | DX: A41.9 Sepsis, unspecified organism (principal); M00.9 Pyogenic arthritis, unspecified; E87.1 Hypo-osmolality and hyponatremia; I10 Essential (primary) hypertension; Z87.891 Personal history of nicotine dependence; Z88.5 Allergy status to narcotic agent; Z88.8 Allergy status to other drugs, medicaments and biological substances; Z91.041 Radiographic dye allergy status; Z79.82 Long term (current) use of aspirin | CPT/HCPCS: J0696 ==

== ENCOUNTER 2019-11-17 00:14 | Day surgery (SDC) | payer BC, OTHER ==
--- NOTE | 2019-11-17 11:09 | NUR ---
PT VERY SORE TODAY, RN UNABLE TO HELP PT UP TO WALKING. PT CALLED TO HELP HER UP. PT STATES ALL HER JOINTS HURT. PT'S SAID THE PT RAN A 100.6 LAST EVENING. PT IS COVERED IN BUG BITES. SHE STATES SHE HAS NOT BEEN OUT OF BED. HAS NO BITES. DISCUSSED WITH PT THAT MAYBE SHE NEEDS TO CALL DR. GEOVANY ARAUJO AND TELL HER WHAT IS JOSE ON. ALSO PT STATES HER STOMACH IS UPSET. TALKED TO PT ABOUT EATING YOGURT AND TAKE A PROBIOTIC. PT APPEARS TO BE VERY UNCOMFORTABLE.
[2019-11-18] MEDS ORDERED: Benadryl 50 mg50 MG PO (13:36)
== END 2019-11-17 10:54 | disposition home or self-care (01) ==
LOC: ATC 00:14
DX: A40.9 Streptococcal sepsis, unspecified (principal); M00.9 Pyogenic arthritis, unspecified; I10 Essential (primary) hypertension; E87.1 Hypo-osmolality and hyponatremia; Z87.891 Personal history of nicotine dependence; Z88.5 Allergy status to narcotic agent; Z88.8 Allergy status to other drugs, medicaments and biological substances; Z91.041 Radiographic dye allergy status; Z79.82 Long term (current) use of aspirin; Z79.899 Other long term (current) drug therapy
CPT/HCPCS: J0696

== ENCOUNTER 2019-11-18 11:25 | Emergency (ER) | payer BC, OTHER ==
[~2019-11-18] VITALS: Ht 182.9 cm; Wt 120.7 kg
[2019-11-18] MEDS ORDERED: Benadryl 50 mg50 MG PO (13:36)
== END 2019-11-18 13:58 | disposition home or self-care (01) ==
LOC: ER 11:25
DX: L29.9 Pruritus, unspecified (principal); I10 Essential (primary) hypertension; Z88.5 Allergy status to narcotic agent; Z91.041 Radiographic dye allergy status; Z91.09 Other allergy status, other than to drugs and biological substances; Z79.82 Long term (current) use of aspirin; Z79.899 Other long term (current) drug therapy; Z87.891 Personal history of nicotine dependence
CPT/HCPCS: 96374; 99282-25; J1200

== ENCOUNTER 2019-11-19 00:31 | Day surgery (SDC) | payer BC, OTHER ==
[~2019-11-19 00:31] MED LIST changes: +Benadryl 50 mg50 MG PO
== END 2019-11-19 16:28 | disposition home or self-care (01) ==
LOC: ATC 00:31
DX: A41.9 Sepsis, unspecified organism (principal); M00.9 Pyogenic arthritis, unspecified; E87.1 Hypo-osmolality and hyponatremia; I10 Essential (primary) hypertension; Z87.891 Personal history of nicotine dependence; Z88.5 Allergy status to narcotic agent; Z88.8 Allergy status to other drugs, medicaments and biological substances; Z91.041 Radiographic dye allergy status; Z79.82 Long term (current) use of aspirin; Z79.899 Other long term (current) drug therapy
CPT/HCPCS: J0696

== ENCOUNTER 2019-11-20 00:07 | Day surgery (SDC) | payer BC, OTHER ==
--- NOTE | 2019-11-20 10:39 | NUR ---
PT HAS ITCHY RED PUSTULE SPOTS ON ARMS, HAS BEEN TO ER, IS TAKING BENADRYL. PT STS THEY ARE SPREADING TO HER FACE, LEGS AND CHEST. PT STS SHE STILL WANTS HER ANTIBX DOSE, DENIES SOB AND TONGUE SWELLING. PT WILL SEE DR GEOVANY ARAUJO THIS AM.
== END 2019-11-20 10:46 | disposition home or self-care (01) ==
LOC: ATC 00:07
DX: A41.9 Sepsis, unspecified organism (principal); M00.9 Pyogenic arthritis, unspecified; E87.1 Hypo-osmolality and hyponatremia; I10 Essential (primary) hypertension; Z87.891 Personal history of nicotine dependence; Z88.5 Allergy status to narcotic agent; Z88.8 Allergy status to other drugs, medicaments and biological substances; Z91.041 Radiographic dye allergy status; Z79.82 Long term (current) use of aspirin; Z79.899 Other long term (current) drug therapy
CPT/HCPCS: 96365; J0696

== ENCOUNTER 2019-11-21 00:03 | Day surgery (SDC) | payer BC, OTHER | END 2019-11-21 11:01 | disposition home or self-care (01) | LOC: ATC 00:03 | DX: A41.9 Sepsis, unspecified organism (principal); M00.9 Pyogenic arthritis, unspecified; E87.1 Hypo-osmolality and hyponatremia; I10 Essential (primary) hypertension; Z87.891 Personal history of nicotine dependence; Z91.041 Radiographic dye allergy status; Z88.5 Allergy status to narcotic agent; Z88.8 Allergy status to other drugs, medicaments and biological substances; Z79.899 Other long term (current) drug therapy; Z79.82 Long term (current) use of aspirin | CPT/HCPCS: 96365; J0696 ==

== ENCOUNTER 2019-11-23 00:15 | Day surgery (SDC) | payer BC, OTHER | END 2019-11-23 10:51 | disposition home or self-care (01) | LOC: ATC 00:15 | DX: A41.9 Sepsis, unspecified organism (principal); M00.9 Pyogenic arthritis, unspecified; E87.1 Hypo-osmolality and hyponatremia; I10 Essential (primary) hypertension; Z87.891 Personal history of nicotine dependence; Z79.899 Other long term (current) drug therapy; Z88.5 Allergy status to narcotic agent; Z88.8 Allergy status to other drugs, medicaments and biological substances; Z91.041 Radiographic dye allergy status; Z79.82 Long term (current) use of aspirin | CPT/HCPCS: 96365; J0696 ==

== ENCOUNTER 2019-11-24 10:26 | Day surgery (SDC) | payer BC, OTHER | END 2019-11-24 10:59 | disposition home or self-care (01) | LOC: ATC 10:26 | DX: A41.9 Sepsis, unspecified organism (principal); M00.9 Pyogenic arthritis, unspecified; E87.1 Hypo-osmolality and hyponatremia; I10 Essential (primary) hypertension; Z87.891 Personal history of nicotine dependence; Z79.899 Other long term (current) drug therapy; Z88.5 Allergy status to narcotic agent; Z88.8 Allergy status to other drugs, medicaments and biological substances; Z91.041 Radiographic dye allergy status; Z79.82 Long term (current) use of aspirin | CPT/HCPCS: 96365; J0696 ==

== ENCOUNTER 2019-11-25 00:22 | Day surgery (SDC) | payer BC, OTHER | END 2019-11-25 10:51 | disposition home or self-care (01) | LOC: ATC 00:22 | DX: A41.9 Sepsis, unspecified organism (principal); M00.9 Pyogenic arthritis, unspecified; E87.1 Hypo-osmolality and hyponatremia; I10 Essential (primary) hypertension; Z87.891 Personal history of nicotine dependence; Z79.899 Other long term (current) drug therapy; Z88.5 Allergy status to narcotic agent; Z88.8 Allergy status to other drugs, medicaments and biological substances; Z91.041 Radiographic dye allergy status; Z79.82 Long term (current) use of aspirin | CPT/HCPCS: 96365; J0696 ==

== ENCOUNTER 2019-11-26 00:18 | Day surgery (SDC) | payer BC, OTHER ==
--- NOTE | 2019-11-26 11:46 | NUR ---
RASH TO UPPER ARMS IS FADING AND IS NO LONGER ITCHING. PT SAW DR. CONTRERAS YESTERDAY. NO CHANGES TO MEDICATION AT THIS TIME.
== END 2019-11-26 10:44 | disposition home or self-care (01) ==
LOC: ATC 00:18
DX: A41.9 Sepsis, unspecified organism (principal); M00.9 Pyogenic arthritis, unspecified; I10 Essential (primary) hypertension; E87.1 Hypo-osmolality and hyponatremia; Z87.891 Personal history of nicotine dependence; Z88.5 Allergy status to narcotic agent; Z88.8 Allergy status to other drugs, medicaments and biological substances; Z91.041 Radiographic dye allergy status; Z79.82 Long term (current) use of aspirin; Z79.899 Other long term (current) drug therapy
CPT/HCPCS: 96365; J0696

== ENCOUNTER 2019-11-27 00:15 | Day surgery (SDC) | payer BC, OTHER ==
[2019-11-27 11:32] LABS: Alanine Aminotransfer (ALT/SGP 31 U/L (12-78); Albumin, Blood 3.4 g/dL (3.4-5.0); Albumin/Globulin Ratio 0.7 (0.8-1.8); Alk Phos 119 U/L (50-136); Aspartate Aminotrans (AST/SGOT 16 U/L (12-37); Bilirubin, Direct <0.1 mg/dL (0.0-0.3); Bilirubin, Indirect Unable to Calculate mg/dL (0.1-0.7); Bilirubin, Total 0.2 mg/dL (0.1-1.0); Globulin, Blood 5.1 g/dL (2.2-4.0); Total Protein, Blood 8.5 g/dL (6.4-8.2)
== END 2019-11-27 11:04 | disposition home or self-care (01) ==
LOC: ATC 00:15
PROVIDERS: Internal Medicine Infectious Disease
DX: A41.9 Sepsis, unspecified organism (principal); M00.9 Pyogenic arthritis, unspecified; E87.1 Hypo-osmolality and hyponatremia; I10 Essential (primary) hypertension; Z87.891 Personal history of nicotine dependence; Z88.5 Allergy status to narcotic agent; Z88.8 Allergy status to other drugs, medicaments and biological substances; Z91.041 Radiographic dye allergy status; Z79.82 Long term (current) use of aspirin
CPT/HCPCS: 80076; 86140; 96365; J0696

== ENCOUNTER 2019-11-28 00:39 | Day surgery (SDC) | payer BC, OTHER | END 2019-11-28 11:03 | disposition home or self-care (01) | LOC: ATC 00:39 | DX: A41.9 Sepsis, unspecified organism (principal); M00.9 Pyogenic arthritis, unspecified; I10 Essential (primary) hypertension; E87.1 Hypo-osmolality and hyponatremia; Z87.891 Personal history of nicotine dependence; Z88.5 Allergy status to narcotic agent; Z88.8 Allergy status to other drugs, medicaments and biological substances; Z91.041 Radiographic dye allergy status; Z79.82 Long term (current) use of aspirin; Z79.899 Other long term (current) drug therapy | CPT/HCPCS: 96365; J0696 ==

== ENCOUNTER 2019-11-29 00:11 | Day surgery (SDC) | payer BC, OTHER ==
--- NOTE | 2019-11-29 11:12 | NUR ---
PT CONTINUES WITH RED SPOTS ON SKIN OF UPPER TORSO. THEY LOOK LIKE THEY ARE DRYING UP. PT STATES IT FEELS ALOT BETTER.
== END 2019-11-29 11:19 | disposition home or self-care (01) ==
LOC: ATC 00:11
DX: A41.9 Sepsis, unspecified organism (principal); M00.9 Pyogenic arthritis, unspecified; I10 Essential (primary) hypertension; E87.1 Hypo-osmolality and hyponatremia; Z87.891 Personal history of nicotine dependence; Z88.5 Allergy status to narcotic agent; Z88.8 Allergy status to other drugs, medicaments and biological substances; Z91.041 Radiographic dye allergy status; Z79.82 Long term (current) use of aspirin; Z79.899 Other long term (current) drug therapy
CPT/HCPCS: 96365; J0696

== ENCOUNTER 2019-11-30 00:12 | Day surgery (SDC) | payer BC, OTHER | END 2019-11-30 10:55 | disposition home or self-care (01) | LOC: ATC 00:12 | DX: A41.9 Sepsis, unspecified organism (principal); M00.9 Pyogenic arthritis, unspecified; I10 Essential (primary) hypertension; E87.1 Hypo-osmolality and hyponatremia; Z87.891 Personal history of nicotine dependence; Z88.5 Allergy status to narcotic agent; Z88.8 Allergy status to other drugs, medicaments and biological substances; Z91.041 Radiographic dye allergy status; Z79.82 Long term (current) use of aspirin; Z79.899 Other long term (current) drug therapy | CPT/HCPCS: 96365; J0696 ==

== ENCOUNTER 2019-12-02 00:11 | Day surgery (SDC) | payer BC, OTHER | END 2019-12-02 11:15 | disposition home or self-care (01) | LOC: ATC 00:11 | DX: A41.9 Sepsis, unspecified organism (principal); M00.9 Pyogenic arthritis, unspecified; E87.1 Hypo-osmolality and hyponatremia; I10 Essential (primary) hypertension; Z87.891 Personal history of nicotine dependence; Z79.82 Long term (current) use of aspirin; Z88.5 Allergy status to narcotic agent; Z88.8 Allergy status to other drugs, medicaments and biological substances; Z91.041 Radiographic dye allergy status; Z79.899 Other long term (current) drug therapy | CPT/HCPCS: 96365; J0696 ==

== ENCOUNTER 2019-12-03 00:22 | Day surgery (SDC) | payer BC, OTHER | END 2019-12-03 11:02 | disposition home or self-care (01) | LOC: ATC 00:22 | DX: A41.9 Sepsis, unspecified organism (principal); M00.9 Pyogenic arthritis, unspecified; E87.1 Hypo-osmolality and hyponatremia; I10 Essential (primary) hypertension; Z87.891 Personal history of nicotine dependence; Z88.5 Allergy status to narcotic agent; Z88.8 Allergy status to other drugs, medicaments and biological substances; Z91.041 Radiographic dye allergy status; Z79.82 Long term (current) use of aspirin; Z79.899 Other long term (current) drug therapy | CPT/HCPCS: 96365; J0696 ==

== ENCOUNTER 2019-12-06 10:20 | Day surgery (SDC) | payer BC, OTHER | END 2019-12-06 11:00 | disposition home or self-care (01) | LOC: ATC 10:20 | DX: A41.9 Sepsis, unspecified organism (principal); M00.9 Pyogenic arthritis, unspecified; E87.1 Hypo-osmolality and hyponatremia; I10 Essential (primary) hypertension; Z87.891 Personal history of nicotine dependence; Z88.5 Allergy status to narcotic agent; Z91.041 Radiographic dye allergy status; Z88.8 Allergy status to other drugs, medicaments and biological substances; Z79.82 Long term (current) use of aspirin; Z79.899 Other long term (current) drug therapy | CPT/HCPCS: 96365; J0696 ==

== ENCOUNTER 2019-12-07 00:56 | Day surgery (SDC) | payer BC, OTHER | END 2019-12-07 11:02 | disposition home or self-care (01) | LOC: ATC 00:56 | DX: A41.9 Sepsis, unspecified organism (principal); M00.9 Pyogenic arthritis, unspecified; I10 Essential (primary) hypertension; E87.1 Hypo-osmolality and hyponatremia; Z88.5 Allergy status to narcotic agent; Z88.8 Allergy status to other drugs, medicaments and biological substances; Z91.041 Radiographic dye allergy status; Z87.891 Personal history of nicotine dependence; Z79.82 Long term (current) use of aspirin; Z79.899 Other long term (current) drug therapy | CPT/HCPCS: 96365; J0696 ==

== ENCOUNTER 2019-12-08 00:39 | Day surgery (SDC) | payer BC, OTHER | END 2019-12-08 10:51 | disposition home or self-care (01) | LOC: ATC 00:39 | DX: A41.9 Sepsis, unspecified organism (principal); M00.9 Pyogenic arthritis, unspecified; I10 Essential (primary) hypertension; Z87.891 Personal history of nicotine dependence; Z79.899 Other long term (current) drug therapy; E87.1 Hypo-osmolality and hyponatremia; Z88.5 Allergy status to narcotic agent; Z88.8 Allergy status to other drugs, medicaments and biological substances; Z91.041 Radiographic dye allergy status; Z79.82 Long term (current) use of aspirin | CPT/HCPCS: 96365; J0696 ==

== ENCOUNTER 2020-12-23 08:50 | Day surgery (SDC) | payer BC, OTHER ==
[~2020-12-23] VITALS: Ht 180.3 cm; Wt 126.2 kg
--- NOTE | 2020-12-23 09:28 | NUR ---
Ambulatory in Day Surgery History, Chart, Medications and Allergies reviewed before start of procedure.Pre-Op teaching done. Pt verbalizes understanding. Patient States Post-Procedure ride home has been arranged. Lungs clear T/O to Auscultation.
--- NOTE | 2020-12-23 10:37 | NUR ---
12/23/[address] [place] [address],[place] PT NOTED TO HAVE SCAB TO LEFT BUTTOCKES FOLD PRIOR TO PROCEDURE , NO DRAINAGE NOTED. DR MORAN MADE AWARE, NO NEW ORDERS AT THIS TIME.
--- NOTE | 2020-12-23 11:37 | NUR ---
brought to [facility] admission started to unit.
--- NOTE | 2020-12-23 13:01 | NUR ---
1145 PATIENT LIBIA PO FLUIDS,JELLO CRACKERS. PO PAIN MED GIVENFOR MILD ABDOMINAL CRAMPING PATIENT HAS SCANT AMT DARK RED VAGINAL DRAINAGE. 1200 D/C INSTRUCTS GIVEN TO PATIENT VERBALIZED UNDERSTANDING UP TO BEDSIDE STEADY ON FEET. NO ASSIST NEEDED. 1215 DC [facility] TURNED OVER TO FRIEND
== END 2020-12-23 23:58 | disposition home or self-care (01) ==
LOC: ORSCMMR 08:50 → ORSCSDS 10:00 → ORSCMMR 10:00 → ORSCSDS 10:15 → ORSCMMR 23:58
PROVIDERS: Obstetrics & Gynecology
PROC: 0U5B8ZZ Destruction of Endometrium, Via Natural or Artificial Opening Endoscopic (ICD-10-PCS; principal; 2020-12-23 10:00)
PROC: 0UDB8ZX Extraction of Endometrium, Via Natural or Artificial Opening Endoscopic, Diagnostic (ICD-10-PCS; principal; 2020-12-23 10:00)
DX: N92.0 Excessive and frequent menstruation with regular cycle (principal); N94.6 Dysmenorrhea, unspecified; I10 Essential (primary) hypertension; Z87.891 Personal history of nicotine dependence; E66.01 Morbid (severe) obesity due to excess calories; Z68.38 Body mass index [BMI] 38.0-38.9, adult; Z79.899 Other long term (current) drug therapy; Z79.82 Long term (current) use of aspirin
CPT/HCPCS: 88305; A9270; J0690; J1100; J1885; J2405; J2704; J3010; J7120

== ENCOUNTER 2022-07-12 08:57 | Emergency (ER) | payer OTHER ==
[~2022-07-12] VITALS: Ht 180.3 cm; Wt 124.7 kg
[2022-07-12] MEDS ORDERED: Lisinopril-Hct1 EAC4 PO (09:22)
[2022-07-12 09:44] LABS: BASOPHILS ABSOLUTE AUTO 0.07 K/mm3 (0.00-0.23); BASOPHILS PERCENT AUTO 1 % (0-2); EOSINOPHILS ABSOLUTE AUTO 0.93 K/mm3 (0.00-0.68); EOSINOPHILS PERCENT AUTO 12 % (0-6); Hematocrit 44.9 % (33.0-51.0); Hemoglobin 14.6 g/dL (11.5-16.0); IMMATURE GRAN ABSOLUTE AUTO 0.02 K/mm3 (0.00-0.10); IMMATURE GRAN PERCENT AUTO 0 % (0-1); LYMPHOCYTES PERCENT AUTO 21 % (21-46); MONOCYTES ABSOLUTE AUTO 0.71 K/mm3 (0.16-1.47); MONOCYTES PERCENT AUTO 9 % (4-13); Mean Corpuscular HGB 28.5 pg (26.0-34.0); Mean Corpuscular HGB Conc 32.5 g/dL (31.5-36.5); Mean Corpuscular Volume 88 fL (80-100); Mean Platelet Volume 9.4 fL (9.1-12.4); NEUTROPHILS ABSOLUTE AUTO 4.59 K/mm3 (1.96-9.15); NEUTROPHILS PERCENT AUTO 57 % (41-73); Platelet Count 232 K/mm3 (150-400); RDW Coefficient Variation 14.7 % (11.7-14.2); RDW Standard Deviation 47.6 fL (35.1-46.3); Red Blood Cell Count 5.12 M/mm3 (3.80-5.20); White Blood Cell Count 8.02 K/mm3 (4.00-11.30)
[2022-07-12 10:02] LABS: Albumin, Blood 3.5 g/dL (3.4-5.0); Albumin/Globulin Ratio 0.9 (0.8-1.8); Bilirubin, Total 0.5 mg/dL (0.1-1.0); Calcium, Blood 9.3 mg/dL (8.5-10.1); Globulin, Blood 3.9 g/dL (2.2-4.0); Potassium, Blood 3.8 mmol/L (3.5-5.5); Total Protein, Blood 7.4 g/dL (6.4-8.2)
[2022-07-12 13:00] VITALS: BP 105/52
== END 2022-07-12 13:27 | disposition home or self-care (01) ==
LOC: ER 08:57
PROVIDERS: Emergency Medicine
DX: R07.89 Other chest pain (principal); I49.3 Ventricular premature depolarization; I10 Essential (primary) hypertension; Z88.5 Allergy status to narcotic agent; Z91.041 Radiographic dye allergy status; Z79.82 Long term (current) use of aspirin; Z79.899 Other long term (current) drug therapy; Z87.891 Personal history of nicotine dependence
CPT/HCPCS: 36415; 71045; 80053; 84484; 85025; 93005; 93010; 99285-25

== ENCOUNTER 2022-08-29 00:50 | Emergency (ER) | payer OTHER ==
[~2022-08-29] VITALS: Ht 180.3 cm; Wt 122.0 kg
[~2022-08-29 00:50] MED LIST changes: +ELIQUIS5 M2 PO; +Lisinopril-Hct1 EAC4 PO; +METO25ER PO
[2022-08-29 02:52] LABS: BASOPHILS ABSOLUTE AUTO 0.08 K/mm3 (0.00-0.23); BASOPHILS PERCENT AUTO 1 % (0-2); EOSINOPHILS ABSOLUTE AUTO 0.91 K/mm3 (0.00-0.68); EOSINOPHILS PERCENT AUTO 9 % (0-6); Hematocrit 42.9 % (33.0-51.0); Hemoglobin 14.2 g/dL (11.5-16.0); IMMATURE GRAN ABSOLUTE AUTO 0.05 K/mm3 (0.00-0.10); IMMATURE GRAN PERCENT AUTO 1 % (0-1); LYMPHOCYTES ABSOLUTE AUTO 2.87 K/mm3 (0.84-5.20); LYMPHOCYTES PERCENT AUTO 29 % (21-46); MONOCYTES ABSOLUTE AUTO 0.81 K/mm3 (0.16-1.47); MONOCYTES PERCENT AUTO 8 % (4-13); Mean Corpuscular HGB 29.2 pg (26.0-34.0); Mean Corpuscular HGB Conc 33.1 g/dL (31.5-36.5); Mean Corpuscular Volume 88 fL (80-100); Mean Platelet Volume 10.1 fL (9.1-12.4); NEUTROPHILS ABSOLUTE AUTO 5.31 K/mm3 (1.96-9.15); NEUTROPHILS PERCENT AUTO 53 % (41-73); Platelet Count 253 K/mm3 (150-400); RDW Coefficient Variation 14.2 % (11.7-14.2); RDW Standard Deviation 45.7 fL (35.1-46.3); Red Blood Cell Count 4.87 M/mm3 (3.80-5.20); White Blood Cell Count 10.03 K/mm3 (4.00-11.30)
[2022-08-29 02:57] LABS: Albumin, Blood 3.5 g/dL (3.4-5.0); Albumin/Globulin Ratio 1.1 (0.8-1.8); Bilirubin, Total 0.4 mg/dL (0.1-1.0); Bun/Creatinine Ratio 20.3 (12.0-20.0); Calcium, Blood 8.9 mg/dL (8.5-10.1); Creatinine, Blood 1.33 mg/dL (0.40-1.00); Globulin, Blood 3.2 g/dL (2.2-4.0); Potassium, Blood 4.4 mmol/L (3.5-5.5); Total Protein, Blood 6.7 g/dL (6.4-8.2)
[2022-08-29 02:59] LABS: International Normalized Ratio 1.03; Prothrombin Time Results 10.8 Sec (9.7-11.5)
[2022-08-29 04:30] VITALS: BP 120/82
== END 2022-08-29 04:53 | disposition home or self-care (01) ==
LOC: ER 00:50
PROVIDERS: Student in an Organized Health Care Education/Training Program
DX: M25.552 Pain in left hip (principal); M25.562 Pain in left knee; R07.9 Chest pain, unspecified; I48.91 Unspecified atrial fibrillation; I10 Essential (primary) hypertension; Z79.01 Long term (current) use of anticoagulants; Z79.899 Other long term (current) drug therapy; Z88.5 Allergy status to narcotic agent; Z88.8 Allergy status to other drugs, medicaments and biological substances; Z91.048 Other nonmedicinal substance allergy status; Z87.891 Personal history of nicotine dependence
CPT/HCPCS: 71045; 73502; 73562-LT; 80053; 84484; 85025; 85610; 93005; 93010; 93971

== ENCOUNTER 2022-10-03 08:24 | Day surgery (SDC) | payer OTHER ==
[~2022-10-03] VITALS: Ht 180.3 cm; Wt 124.7 kg
[2022-10-03] VITALS (13 sets, daily range): BP systolic 100–123; BP diastolic 71–97
--- NOTE | 2022-10-03 09:59 | NUR ---
0930 PATIENT HERE FOR DCCV, AFIB NOTED ON MONITOR, NO MISSED DOSES OF ELIQUIS NOTED FORM THE PATIENT, PREPPED FOR PROCEDURE.
--- NOTE | 2022-10-03 10:43 | NUR ---
PAIENT IS S/P DCCV, AWAKE AND PIV DISCONTINUED AND CATH TIP INTACT. VVS. WILDLIFE FORENSIC GENETICIST, REVIEWED INSTRUCTIONS AND FOLLOW UP INSTRUCTIONS AND APPOINTMENT. PATIENT DISCHARGED HOME WITH WHEELCHAIR.
== END 2022-10-03 10:30 | disposition home or self-care (01) ==
LOC: MHTC 08:24
DX: I48.91 Unspecified atrial fibrillation (principal); I42.1 Obstructive hypertrophic cardiomyopathy; I51.89 Other ill-defined heart diseases; I34.0 Nonrheumatic mitral (valve) insufficiency; I10 Essential (primary) hypertension; E66.9 Obesity, unspecified
CPT/HCPCS: 92960; 93005; 93010; 99152; 99153; J2250; J3010; J7030

== ENCOUNTER 2023-08-27 09:18 | Emergency (ER) | payer OTHER ==
[~2023-08-27] VITALS: Ht 180.3 cm; Wt 133.8 kg
[2023-08-27 09:48] LABS: BASOPHILS ABSOLUTE AUTO 0.09 K/mm3 (0.00-0.23); BASOPHILS PERCENT AUTO 1 % (0-2); EOSINOPHILS ABSOLUTE AUTO 0.71 K/mm3 (0.00-0.68); EOSINOPHILS PERCENT AUTO 8 % (0-6); Hematocrit 42.7 % (33.0-51.0); Hemoglobin 14.2 g/dL (11.5-16.0); IMMATURE GRAN ABSOLUTE AUTO 0.03 K/mm3 (0.00-0.10); IMMATURE GRAN PERCENT AUTO 0 % (0-1); LYMPHOCYTES ABSOLUTE AUTO 2.03 K/mm3 (0.84-5.20); LYMPHOCYTES PERCENT AUTO 23 % (21-46); MONOCYTES PERCENT AUTO 8 % (4-13); Mean Corpuscular HGB 29.2 pg (26.0-34.0); Mean Corpuscular HGB Conc 33.3 g/dL (31.5-36.5); Mean Corpuscular Volume 88 fL (80-100); Mean Platelet Volume 9.9 fL (9.1-12.4); NEUTROPHILS ABSOLUTE AUTO 5.24 K/mm3 (1.96-9.15); NEUTROPHILS PERCENT AUTO 60 % (41-73); Platelet Count 237 K/mm3 (150-400); RDW Coefficient Variation 13.7 % (11.7-14.2); RDW Standard Deviation 44.3 fL (35.1-46.3); Red Blood Cell Count 4.86 M/mm3 (3.80-5.20)
[2023-08-27 10:03] LABS: Albumin, Blood 3.5 g/dL (3.4-5.0); Albumin/Globulin Ratio 0.9 (0.8-1.8); Bilirubin, Total 0.5 mg/dL (0.1-1.0); Bun/Creatinine Ratio 17.2 (12.0-20.0); Calcium, Blood 8.9 mg/dL (8.5-10.1); Creatinine, Blood 0.93 mg/dL (0.40-1.00); Globulin, Blood 3.9 g/dL (2.2-4.0); Total Protein, Blood 7.4 g/dL (6.4-8.2)
[2023-08-27 10:11] LABS: International Normalized Ratio 0.97; Prothrombin Time Results 10.4 Sec (9.7-11.5)
[2023-08-27] MEDS ORDERED: Furosemide 10 MG/ML 4ML Vial IV ONE (11:00)
[2023-08-27 15:00] VITALS: BP 131/70
== END 2023-08-27 15:15 | disposition home or self-care (01) ==
LOC: ER 09:18
PROVIDERS: Physician Assistant
DX: I11.0 Hypertensive heart disease with heart failure (principal); I50.9 Heart failure, unspecified; Z87.891 Personal history of nicotine dependence; I48.91 Unspecified atrial fibrillation; Z79.899 Other long term (current) drug therapy; Z88.5 Allergy status to narcotic agent; Z88.8 Allergy status to other drugs, medicaments and biological substances
CPT/HCPCS: 71046; 80053; 83735; 83880; 84484; 85025; 85610; 85730; 93005; 93010; 96374; 99285-25; J1940